=== PATIENT | male | born 1965 | race Caucasian/White ===

== ENCOUNTER → 2020-06-16 08:12 | Outpatient (CLI) | payer OTHER, SELFPAY ==
--- NOTE | 2020-06-16 | DI.RAD.S_ITS ---
PROCEDURE: XR WRIST RT MIN 3V INDICATIONS: RIGHT WRIST INJURY TECHNIQUE: 4 views of the wrist were acquired. COMPARISON: None. FINDINGS: Bones: No fractures or dislocations. No suspicious bony lesions. Scaphoid view: The scaphoid visualized appears normal. Soft tissues: No suspicious soft tissue calcifications. IMPRESSION: No trauma found, delayed plain films may be warranted if I knew usual symptoms persist which can indicate presence of a in fracture. Dictated by: Orlando Turcios M.D. on 06/16/2020 at 11:34 Approved by: Orlando Turcios M.D. on 06/16/2020 at 12:35
== END ==
PROVIDERS: PCP Physician Assistant; Referring Provider Physician Assistant; Visit Provider Physician Assistant
DX: S69.91XA Unspecified injury of right wrist, hand and finger(s), initial encounter (principal); X58.XXXA Exposure to other specified factors, initial encounter
CPT/HCPCS: 73110

== ENCOUNTER → 2020-07-05 07:38 | Outpatient (CLI) | payer OTHER, SELFPAY ==
--- NOTE | 2020-07-05 | DI.RAD.S_ITS ---
PROCEDURE: XR WRIST RT MIN 3V INDICATIONS: RT WRIST SERIES TECHNIQUE: 4 views of the wrist were acquired. COMPARISON: [facility], , XR WRIST RT MIN 3V, 06/16/2020, 7:21. FINDINGS: Bones: No fractures or dislocations. No periosteal reaction. No suspicious bony lesions. Question of marginal erosion at the 1st digit MCP joint. Scaphoid view: Unremarkable. Soft tissues: No suspicious soft tissue calcifications. IMPRESSION: No acute osseous abnormality. Question of marginal erosion at the 1st digit MCP joint. Consider further evaluation with radiographs of the hands. Dictated by: Real Collins M.D. on 07/05/2020 at 9:31 Approved by: Real Collins M.D. on 07/05/2020 at 9:33
== END ==
PROVIDERS: PCP Physician Assistant; Referring Provider Physician Assistant; Visit Provider Physician Assistant
DX: S69.91XA Unspecified injury of right wrist, hand and finger(s), initial encounter (principal); W19.XXXA Unspecified fall, initial encounter
CPT/HCPCS: 73110